=== PATIENT | female | born 2000 | race American Indian/Alaskan Native ===

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

== ENCOUNTER 2020-09-24 02:26 | Inpatient (IN) | payer OTHER ==
[2020-09-24] MEDS ORDERED: BUTORPHANOL 2 MG/1 ML INJ ONE (03:20)
[2020-09-24] MEDS ORDERED: LACTATED RINGERS 1,000 ML ONE (03:21)
[2020-09-24] MEDS ORDERED: LOPERAMIDE 2 MG CAP PO PRN ×2 (03:28→04:57)
[2020-09-24] MEDS ORDERED: OXYTOCIN 10 UNIT/1 ML INJ IM PRN ×2 (03:28→04:57)
[2020-09-24] MEDS ORDERED: LIDOCAINE (2%) 20 MG/1 ML VIAL 20 ML MDV INFILTRATI ONE ×2 (03:28→04:57)
[2020-09-24] MEDS ORDERED: TERBUTALINE 1 MG/1 ML INJ SUB-Q PRN ×2 (03:28→04:57)
[2020-09-24] MEDS ORDERED: MINERAL OIL 30 ML ORAL LIQD PO PRN ×2 (03:28→04:57)
[2020-09-24] MEDS ORDERED: CARBOPROST TROMETHAMINE 250 MCG/1 ML INJ IM PRN ×2 (03:28→04:57)
[2020-09-24] MEDS ORDERED: METHYLERGONOVINE MALEATE 0.2 MG/ML VIAL IM PRN ×2 (03:28→04:57)
[2020-09-24] MEDS ORDERED: miSOPROStol 200 MCG TAB PR PRN ×2 (03:28→04:57)
[2020-09-24] MEDS ORDERED: BUTORPHANOL 2 MG/1 ML INJ IV PRN ×3 (03:28→04:57)
[2020-09-24] MEDS ORDERED: ePHEDrine SULFATE 50 MG/1 ML INJ IV PRN ×2 (03:28→04:57)
[2020-09-24] MEDS ORDERED: ACETAMINOPHEN 325 MG TAB PO PRN ×3 (03:28→05:03)
[2020-09-24] MEDS ORDERED: LACTATED RINGERS 1,000 ML IV SCH ×2 (03:30→05:00)
--- NOTE | 2020-09-24 03:54 | History and Physical Report ---
History of Present Illness Date of examination: 09/24/20 Date of admission: 09/24/20 Chief complaint: labor History of present illness: The patient is a 20-year-old 2 para 1-0-0-1 female in active labor at term. Her records are not available. Anticipate vaginal delivery. Past History Past Medical History: no pertinent history Past Surgical History: no surgical history Family/Genetic History: none Social history: single - Obstetrical History Expected Date of Delivery: 09/30/20 Actual Gestation: 39 Week(s) 1 Day(s) : 2 Para: 1 Hx # Term Pregnancies: 1 Number of Pregnancies: 0 Spontaneous Abortions: 0 Induced : 0 Number of Living Children: 1 Medications and Allergies Allergies Allergy/AdvReac Type Severity Reaction Status Date / Time No Known Allergies Allergy Unverified 12/26/18 14:16 Home Medications Medication Instructions Recorded Confirmed Last Taken Type No Known Home Medications [No 12/26/18 12/26/18 Unknown History Reported Home Medications] Active Meds: Active Medications Acetaminophen (Acetaminophen 325 Mg Tab) 650 mg PO Q4H PRN PRN Reason: Pain, Mild (1-3) Butorphanol Tartrate (Butorphanol 2 Mg/1 Ml Inj) 2 mg IV Q2H PRN PRN Reason: Pain , Severe (7-10) Butorphanol Tartrate (Butorphanol 2 Mg/1 Ml Inj) 1 mg IV Q2H PRN PRN Reason: Pain, Moderate(4-6) LABOR PAIN Carboprost Tromethamine (Carboprost Tromethamine 250 Mcg/1 Ml Inj) 250 mcg IM ONCE PRN PRN Reason: Uterine Bleeding Ephedrine Sulfate (Ephedrine Sulfate 50 Mg/1 Ml Inj) 10 mg IV Q2M PRN PRN Reason: Hypotension Oxytocin/Sodium Chloride (Pitocin/Ns 30 Unit/500ml) 30 units in 500 mls @ 2 mls/hr IV TITR ROGERIO; Protocol Lactated Ringer's (Lactated Ringers) 1,000 mls @ 125 mls/hr IV DIRECT ROGERIO Oxytocin/Sodium Chloride (Pitocin/Ns 30 Unit/500ml) 30 units in 500 mls @ 40 mls/hr IV TITR ROGERIO; Protocol Loperamide HCl (Loperamide 2 Mg Cap) 2 mg PO ONCE PRN PRN Reason: give with Hemabate Methylergonovine Maleate (Methylergonovine Maleate 0.2 Mg/Ml Vial) 0.2 mg IM ONCE PRN PRN Reason: Uterine Bleeding Mineral Oil (Mineral Oil 30 Ml Oral Liqd) 30 ml PO QHS PRN PRN Reason: Constipation Misoprostol (Misoprostol 200 Mcg Tab) 800 mcg [place] ONCE PRN PRN Reason: Uterine Bleeding Oxytocin (Oxytocin 10 Unit/1 Ml Inj) 10 unit IM ONCE PRN PRN Reason: Uterine Bleeding Terbutaline Sulfate (Terbutaline 1 Mg/1 Ml Inj) 0.25 mg SUB-Q ONCE PRN PRN Reason: Hyperstimulation/Hypertonicity Review of Systems All systems: negative - Vital Signs Vital signs: Vital Signs Pulse BP 79 118/56 09/24/20 02:40 09/24/20 02:40 Temp Pulse Resp BP Pulse Ox 98.3 F 73 119/58 100 09/24/20 03:32 09/24/20 03:25 09/24/20 03:25 09/24/20 03:11 - Physical Exam Breasts: Cardiovascular: Regular rate, Normal S1, Normal S2 Abdomen: Positive: normal appearance, soft, normal bowel sounds. Negative: distention, tenderness Genitourinary (Female): Positive: normal external genitalia Vulva: both: normal Vagina: Positive: normal moisture. Negative: discharge Cervix: Negative: lesion, discharge Uterus: Positive: normal size, enlarged, normal contour Adnexa: both: normal Anus/Rectum: Positive: normal perianal skin, heme negative. Negative: rectal mass, hemorrhoids Extremities: Positive: normal Deep Tendon Reflex Grade: Normal +2 - Obstetrical FHR: category 1 Uterine Contraction Monitor Mode: External Cervical Dilatation: 6 Cervical Effacement Percentage: 100 station: 0 Uterine Contraction Frequency (min): q5m Uterine Contraction Duration: 1 min Uterine Contraction Pattern: Regular Uterine Tone Measurement Phase: Resting Uterine Contraction Intensity: Moderate Results All other labs normal. Assessment and Plan 39 wks iup, active labor. Anticipate vaginal delivery.
[2020-09-24] MEDS ORDERED: OXYTOCIN DRIP 30 UNITS/500 ML BAG IV SCH ×3 (04:00→05:00)
[2020-09-24] MEDS: OXYTOCIN DRIP 30 UNITS/500 ML BAG IV SCH ×3 (04:45→07:20)
--- NOTE | 2020-09-24 04:56 | Procedure Note ---
Date of procedure: 09/24/20 Pre-op diagnosis: 39 wk iup, labor Post-op diagnosis: same Procedure: There is note. Preoperative diagnosis 39-week intrauterine , active labor. Postoperative diagnosis same. Normal spontaneous vaginal delivery liveborn male weighing 6 pounds 5 ounces with Apgars 8 and 9. Placenta came out intact. Anesthesia none. Complications none Anesthesia: none Surgeon: BERONICA CAMPBELL Estimated blood loss: other (300ccs) Pathology: none Specimen disposition: discarded Condition: stable Disposition: floor
[2020-09-24] MEDS ORDERED: fentaNYL 100 MCG/2 ML INJ IV PRN (04:57)
[2020-09-24] MEDS ORDERED: oxyCODONE /ACETAMINOPHEN 5-325MG TAB PO PRN (05:03)
[2020-09-24] MEDS ORDERED: MAGNESIUM HYDROXIDE (MOM) ORAL LIQD UDC PO PRN (05:03)
[2020-09-24] MEDS ORDERED: PROMETHAZINE 25 MG RECT SUPP PR PRN (05:03)
[2020-09-24] MEDS ORDERED: ONDANSETRON 4 MG/2 ML INJ IV PRN (05:03)
[2020-09-24] MEDS ORDERED: PROMETHAZINE 25 MG TAB PO PRN (05:03)
[2020-09-24] MEDS ORDERED: WITCH HAZEL/ GLYCERIN PAD TP PRN (05:03)
[2020-09-24] MEDS ORDERED: diphenhydrAMINE 25 MG CAP PO PRN (05:03)
[2020-09-24] MEDS ORDERED: LANOLIN/ZINC/DIMETHICONE (LANSINOH) 7 GM TP PRN (05:03)
[2020-09-24 05:13] LABS: Hematocrit 32.6 % (30.3-42.9); Hemoglobin 10.7 gm/dl (10.1-14.3); Mean Corpuscular HGB Conc 33 % (30-34); Mean Corpuscular Volume 93 fl (79-97); Platelet Count 193 K/mm3 (140-440); Red Blood Count 3.52 M/mm3 (3.65-5.03); Red Cell Distribution Width 14.6 % (13.2-15.2)
[2020-09-24 11:53] LABS: Hepatitis C Virus Antibody Non-Reactive (NonReactive)
[2020-09-24] MEDS: IBUPROFEN 600 MG TAB PO SCH (16:38)
[2020-09-24 16:51] LABS: Hematocrit 27.4 % (30.3-42.9)
[2020-09-24 21:28] LABS: Hematocrit 26.8 % (30.3-42.9); Hemoglobin 8.8 gm/dl (10.1-14.3)
[2020-09-25] MEDS: FERROUS SULFATE 325 MG TAB PO SCH ×3 (05:38→21:41)
[2020-09-25] MEDS: IBUPROFEN 600 MG TAB PO SCH ×4 (05:39→23:54)
--- NOTE | 2020-09-25 11:08 | Progress Note ---
Assessment and Plan A: day 1 S/P . Anemia. P: Continue iron supplements. Anticipate discharge home tomorrow morning if patient continues to do well. Subjective - Subjective Date of service: 09/25/20 Principal diagnosis: day 1 S/P Patient reports: appetite normal, voiding normally, pain well controlled, flatus, ambulating normally, no dizzy ambulation, no nauseated [place]: doing well Objective - Vital Signs Latest vital signs: Vital Signs Temp Pulse Resp BP Pulse Ox Pulse Ox 09/25/20 08:05 97.9 F 87 18 92/62 09/25/20 06:39 18 09/25/20 05:39 18 09/25/20 00:30 97.9 F 64 18 96/53 99 09/24/20 20:00 100 09/24/20 16:00 98.3 F 58 L 18 90/58 Intake and Output 09/24/20 09/25/20 09/25/20 23:59 07:59 15:59 Intake Total 1040 360 120 Balance 1040 360 120 Intake: Oral 1040 240 120 Intake, Free Water 120 Other: Total, Intake Amount 240 120 120 # Voids Void 1 1 1 - Exam Cardiovascular: Present: Regular rate Lungs: Present: Clear to auscultation Abdomen: Present: normal appearance, soft. Absent: distention, tenderness, guarding, rigidity Uterus: Present: normal, firm, fundal height below umbilicus. Absent: bogginess, tenderness Extremities: Present: normal. Absent: tenderness, edema - Labs Labs: Abnormal lab results 09/24/20 09/24/20 Range/Units 15:54 20:39 Hgb 9.0 L 8.8 L (10.1-14.3) gm/dl Hct 27.4 L 26.8 L (30.3-42.9) %
[2020-09-26] MEDS: IBUPROFEN 600 MG TAB PO SCH (06:22)
--- NOTE | 2020-09-26 07:02 | Progress Note ---
Assessment and Plan A: day 2 S/P . Anemia. P: Discharge patient home today. Discussed with patient discharge instructions and warning signs. Advised patient to continue taking her vitamins and iron supplements at home. Advised patient to avoid intercourse, lifting, heavy housework. Advised patient to follow up at [facility] in 6 weeks. Patient voiced understanding of all instructions. Subjective - Subjective Date of service: 09/26/20 Principal diagnosis: day 2 S/P Patient reports: appetite normal, voiding normally, pain well controlled, flatus, ambulating normally, no dizzy ambulation, no nauseated [place]: doing well Objective - Vital Signs Latest vital signs: Vital Signs Temp Pulse Resp BP BP Pulse Ox Pulse Ox 09/26/20 06:22 18 09/26/20 00:54 18 09/26/20 00:34 98.3 F 60 20 91/56 99 09/25/20 23:54 18 09/25/20 21:30 100 09/25/20 15:35 98 F 66 18 90/50 09/25/20 08:05 97.9 F 87 18 92/62 09/25/20 08:00 100 Intake and Output 09/25/20 09/25/20 09/26/20 15:59 23:59 07:59 Intake Total 800 560 360 Balance 800 560 360 Intake: Oral 800 320 Intake, Free Water 240 360 Other: Total, Intake Amount 360 320 # Voids Void 1 1 1 - Exam Cardiovascular: Present: Regular rate Lungs: Present: Clear to auscultation Abdomen: Present: normal appearance, soft, normal bowel sounds. Absent: distention, tenderness, guarding, rigidity Uterus: Present: normal, firm, fundal height below umbilicus. Absent: bogginess, tenderness Extremities: Present: normal. Absent: tenderness, edema
--- NOTE | 2020-09-26 07:05 | Discharge Summary ---
Providers - Providers Date of Admission: 09/24/20 04:57 Date of discharge: 09/26/20 Attending physician: BERONICA CAMPBELL MD Primary care physician: BERONICA CAMPBELL MD Hospitalization Reason for admission: active labor Delivery: Episiotomy: none Laceration: none Other procedures: none complications: none Discharge diagnosis: IUP at term delivered baby: male Pertinent studies: Labs Hospital course: Stable hospital course. Condition at discharge: Good Disposition: 01 HOME / SELF CARE / HOMELESS - Discharge Diagnoses (1) Term delivered Status: Acute (2) Anemia Status: Acute Plan - Provider Discharge Summary Activity: routine, no sex for 6 weeks, no heavy lifting 4 weeks, no strenuous exercise Diet: routine Instructions: routine Additional instructions: Continue taking your vitamins and iron supplements at home. Follow up at [facility] in 6 weeks. Call your doctor immediately for: * Fever > 100.5 * Heavy vaginal bleeding ( >1 pad per hour) * Severe persistent headache * Shortness of breath * Reddened, hot, painful area to leg or breast - Follow up plan Follow up: BERONICA CAMPBELL MD [Primary Care Provider] - 6 Weeks
[2020-09-26 13:05] VITALS: BP 97/54
== END 2020-09-26 13:10 | disposition home or self-care (01) | DRG 775 ==
LOC: TRG 02:26 → APU 02:28 → LD 04:17 → TRG 04:57 → OB 09:04
PROC: 10E0XZZ Delivery of Products of Conception, External Approach (ICD-10-PCS; principal; 2020-09-24)
DX: O90.81 Anemia of the puerperium (principal); Z37.0 Single live birth; Z20.822 Contact with and (suspected) exposure to COVID-19; Z3A.39 39 weeks gestation of pregnancy; D64.9 Anemia, unspecified
CPT/HCPCS: 36415; 59025; 85014; 85018; 85027; 86592; 86706; 86762; 86803; 86850; 86900; 86901; 87806; 96360; G0378; J0595; J2590; J7120; U0003